=== PATIENT | male | born 1950 | race Caucasian/White ===

== ENCOUNTER 2020-05-30 05:31 | Day surgery (SDC) | payer MEDICARE ==
[2020-05-27 14:02] LABS: BASOPHILS % (AUTO) 0.5 % (0-1); EOSINOPHILS # (AUTO) 0.1 X10'3 (0-0.9); EOSINOPHILS % (AUTO) 2.4 % (0-6); LYMPHOCYTES # (AUTO) 1.7 X10'3 (1.1-4.8); LYMPHOCYTES % (AUTO) 32.9 % (21-51); MEAN CORPUSCULAR HEMOGLOBIN 29.3 PG (27.0-31.0); MEAN CORPUSCULAR HGB CONC 33.7 g/dL (33.0-36.5); MEAN PLATELET VOLUME 7.5 FL (7.4-10.4); MONOCYTES # (AUTO) 0.5 X10'3 (0-0.9); MONOCYTES % (AUTO) 9.8 % (2-12); NEUTROPHILS # (AUTO) 2.8 X10'3 (1.8-7.7); NEUTROPHILS % (AUTO) 54.4 % (42-75); PRE OP HEMATOCRIT 47.5 % (42.0-52.0); PRE OP PLATELET COUNT 186 X10'3 (140-440); RED BLOOD COUNT 5.46 X10'6 (4.70-6.10)
[2020-05-27 14:16] LABS: ALBUMIN 4.1 G/DL (3.4-5.0); ALBUMIN/GLOBULIN RATIO 1.2 (1.1-1.5); ALKALINE PHOSPHATASE 93 IU/L (46-116); BLOOD UREA NITROGEN 11 MG/DL (7-18); BUN/CREATININE RATIO 14.1 (5.4-32.0); CALCIUM 9.5 MG/DL (8.5-10.1); CHLORIDE 108 MMOL/L (99-107); CREATININE 0.78 MG/DL (0.60-1.10); PRE OP ANION GAP 8 (8-16); PRE OP AST 46 U/L (10-37); PRE OP BILIRUB, TOTAL 0.5 MG/DL (0.0-1.0); PRE OP GLUCOSE 99 MG/DL (70-104); PRE OP POTASSIUM 3.9 MMOL/L (3.4-5.1); PRE OP SODIUM 144 MMOL/L (135-145); TOTAL CARBON DIOXIDE 27.6 MMOL/L (24-32); TOTAL PROTEIN 7.5 G/DL (6.4-8.2); eGFR > 90 ML/MIN
[2020-05-27 14:19] LABS: PRE OP ALT 84 U/L (30-65)
[~2020-05-30] VITALS: Ht 177.8 cm; Wt 106.0 kg
[~2020-05-30 05:31] MED LIST: ASPI-611 PO; DUTA0.5C17 PO; MELO-102 PO; MONT10TA97 PO; TERA5CAP4 PO; famotidine 20mg tablet PO ONE; ringers solution, lacted 1,000 ML IV SCH
[2020-05-30 05:50] VITALS: BP 159/69
[2020-05-30] MEDS ORDERED: triamcinolone acetonide 40mg/ml inj ONE (06:48)
[2020-05-30] MEDS ORDERED: BUPIVAcaine/PF 2.5 mg/ml (0.25%) 30ml vial ONE ×2 (06:49→07:30)
[2020-05-30] MEDS ORDERED: sevoflurane 250ml liquid IH ONE (07:20)
[2020-05-30] MEDS ORDERED: fentaNYL/PF 50MCG/1 ML 2ML syringe ONE (07:22)
[2020-05-30] MEDS ORDERED: midazolam 2 mg/2 ml injection ONE (07:37)
[2020-05-30] MEDS ORDERED: propofol inj 20 ML IV ONE (07:37)
[2020-05-30] MEDS ORDERED: LIDOcaine 2% (20mg/ml) 5ml vial ONE (07:37)
[2020-05-30 07:38] VITALS: BP 128/77
--- NOTE | 2020-05-30 07:38 | NUR ---
Received from OR via gold, accompanied by Anesthesiologist Nichole and report given by Anesthesiolgist. Right knee with bandaid, no pain, pt alert and responsive, VS stable, Left hand IV LR at 100cc/hr.
[2020-05-30] MEDS ORDERED: meperidine/PF 25mg/ml syringe IV PRN ×3 (07:45)
[2020-05-30] MEDS ORDERED: ondansetron/PF 4mg/2ml inj IV PRN (07:45)
[2020-05-30] MEDS ORDERED: ringers solution, lacted 1,000 ML IV SCH (07:45)
[2020-05-30] MEDS ORDERED: proCHLORperazine 10 MG/2 ml inj IV PRN (07:45)
[2020-05-30] MEDS ORDERED: morphine 2 MG/ML inj. syringe IV PRN (07:45)
[2020-05-30] MEDS ORDERED: morphine 4 MG/ML inj SYRINge IV PRN (07:45)
[2020-05-30 07:50] VITALS: BP 131/85
[2020-05-30 08:00] VITALS: BP 136/92
[2020-05-30 08:10] VITALS: BP 132/86
--- NOTE | 2020-05-30 08:38 | NUR ---
Pt discharged to vehicle without incident, no pain, IV dc'd and all belongings returned to him. Pt and daughter verbalized understanding of DC instructions and pt states he has new pain meds already received at home. Daughter taking patient to scheduled PT appointment as discussed and planned by dcotrs office. PT office was called to confirm and they are expecting patient shortly.
== END 2020-05-30 08:38 | disposition home or self-care (01) ==
LOC: PAS 05:31
PROVIDERS: ATTEND Orthopaedic Surgery
DX: M25.661 Stiffness of right knee, not elsewhere classified (principal); J45.909 Unspecified asthma, uncomplicated; G89.4 Chronic pain syndrome; I10 Essential (primary) hypertension; N40.1 Benign prostatic hyperplasia with lower urinary tract symptoms; N13.8 Other obstructive and reflux uropathy; E78.5 Hyperlipidemia, unspecified; E66.8 Other obesity; Z68.34 Body mass index [BMI] 34.0-34.9, adult; M17.12 Unilateral primary osteoarthritis, left knee; Z96.651 Presence of right artificial knee joint; Z98.890 Other specified postprocedural states; Z79.899 Other long term (current) drug therapy; Z20.828 Contact with and (suspected) exposure to other viral communicable diseases; Z72.89 Other problems related to lifestyle; Z87.442 Personal history of urinary calculi; Z91.09 Other allergy status, other than to drugs and biological substances
CPT/HCPCS: 20610; 27570; 36415; 80053; 82948; 85025; 87635; J2001; J2250; J2704; J3010; J3301; J3490; A4215; A4618; J7120

== ENCOUNTER 2022-11-23 11:00 | Day surgery (SDC) | payer MEDICARE ==
[2022-11-20 10:13] LABS: BASOPHILS % (AUTO) 0.2 % (0-1); EOSINOPHILS # (AUTO) 0.2 X10'3 (0-0.9); EOSINOPHILS % (AUTO) 2.7 % (0-6); HEMATOCRIT 46.4 % (42.0-52.0); LYMPHOCYTES # (AUTO) 1.5 X10'3 (1.1-4.8); LYMPHOCYTES % (AUTO) 24.7 % (21-51); MEAN CORPUSCULAR HEMOGLOBIN 30.4 PG (27.0-31.0); MEAN CORPUSCULAR HGB CONC 34.6 g/dL (33.0-36.5); MEAN CORPUSCULAR VOLUME 87.9 FL (78-98); MEAN PLATELET VOLUME 7.4 FL (7.4-10.4); MONOCYTES # (AUTO) 0.6 X10'3 (0-0.9); MONOCYTES % (AUTO) 9.1 % (2-12); NEUTROPHILS # (AUTO) 3.8 X10'3 (1.8-7.7); NEUTROPHILS % (AUTO) 63.3 % (42-75); PLATELET COUNT 169 X10'3 (140-440); RED BLOOD COUNT 5.27 X10'6 (4.70-6.10); RED CELL DISTRIBUTION WIDTH 13.6 % (11.5-14.5); WHITE BLOOD COUNT 6.1 X10'3 (4.5-11.0)
[2022-11-20 10:17] LABS: APTT 31 SECONDS (22-32)
[2022-11-20 10:22] LABS: ALBUMIN 3.9 G/DL (3.4-5.0); ANION GAP 5 (8-16); BLOOD UREA NITROGEN 13 MG/DL (7-18); BUN/CREATININE RATIO 16.5 (10.0-20.0); CALCIUM 8.9 MG/DL (8.5-10.1); CHLORIDE 106 MMOL/L (99-107); CHOL/HDL RATIO 3.5 (0.00-4.99); CHOLESTEROL 173 MG/DL (0-200); CREATININE 0.79 MG/DL (0.60-1.10); GLUCOSE 113 MG/DL (70-104); HDL CHOLESTEROL 50 MG/DL (35-60); LDL CHOLESTEROL 109 MG/DL (50-100); POTASSIUM 3.9 MMOL/L (3.5-5.1); SODIUM 140 MMOL/L (135-145); TOTAL CARBON DIOXIDE 29.3 MMOL/L (24-32); TRIGLYCERIDES 64 MG/DL (20-135); eGFR > 90 ML/MIN
[~2022-11-23] VITALS: Ht 177.8 cm; Wt 112.1 kg
[2022-11-23] VITALS (7 sets, daily range): BP systolic 130–148; BP diastolic 76–101
[~2022-11-23 11:00] MED LIST changes: -DUTA0.5C17 PO; +DUTA0.5C36 PO; +MONT-40 PO; -MONT10TA97 PO; -famotidine 20mg tablet PO ONE; -ringers solution, lacted 1,000 ML IV SCH
[2022-11-23] MEDS ORDERED: normal saline 1,000 ML IV SCH (11:35)
[2022-11-23] MEDS ORDERED: diphenhydrAMINE 25mg capsule PO PRN (11:35)
[2022-11-23] MEDS ORDERED: LORazepam 0.5 MG tablet PO PRN (11:35)
[2022-11-23] MEDS ORDERED: CELE-28 PO (11:45)
[2022-11-23] MEDS ORDERED: PANT40TA54 PO (11:45)
[2022-11-23] MEDS ORDERED: CALC-212 PO (11:45)
[2022-11-23] MEDS ORDERED: MULT-620 PO (11:45)
[2022-11-23] MEDS ORDERED: ZINC100T2 PO (11:45)
[2022-11-23] MEDS ORDERED: verapamil 2.5 mg/ml inj IV ONE (14:15)
[2022-11-23] MEDS ORDERED: LIDOcaine 1% (10mg/ml) 2ml vial ONE ×2 (14:15→14:47)
[2022-11-23] MEDS ORDERED: nitroGLYCERIN-Tridil 50MG/D5W 250 ML IV ONE (14:15)
[2022-11-23] MEDS ORDERED: fentaNYL/PF 50MCG/1 ML 2ML syringe ONE (14:16)
[2022-11-23] MEDS ORDERED: iohexol 350MG/ML 100ml bottle IV ONE (14:16)
[2022-11-23] MEDS ORDERED: heparin 1,000unit/ml 10ml vial 10 ML ONE (14:16)
[2022-11-23] MEDS ORDERED: midazolam 1 mg/ML 2ml injection ONE (14:16)
[2022-11-23] MEDS ORDERED: iohexol 350 MG/ML 50ML vial IV ONE (15:35)
[2022-11-23 16:10] LABS: ISTAT HGB ART 12.9 g/dl (14.0-17.9); ISTAT Hct ART 38 %PCV (42-52); ISTAT O2 SATURATION ARTERIAL 94 % (95-98); ISTAT SOURCE ART
[2022-11-23] MEDS ORDERED: HYDROcodone/acetaminophen 10/325mg tab PO PRN (16:40)
[2022-11-23] MEDS ORDERED: HYDROcodone/acetaminophen 5mg/325mg tablet PO PRN (16:40)
== END 2022-11-23 17:45 | disposition home or self-care (01) ==
LOC: SSTAY O 11:00
PROVIDERS: ATTEND Internal Medicine Interventional Cardiology
DX: I35.0 Nonrheumatic aortic (valve) stenosis (principal); I25.10 Atherosclerotic heart disease of native coronary artery without angina pectoris; N40.0 Benign prostatic hyperplasia without lower urinary tract symptoms; M06.9 Rheumatoid arthritis, unspecified; I10 Essential (primary) hypertension; E78.5 Hyperlipidemia, unspecified; E66.9 Obesity, unspecified; Z68.34 Body mass index [BMI] 34.0-34.9, adult; J45.909 Unspecified asthma, uncomplicated; G89.4 Chronic pain syndrome; Z79.899 Other long term (current) drug therapy; Z79.01 Long term (current) use of anticoagulants
CPT/HCPCS: 36415; 80048; 80061; 82803; 85014; 85025; 85610; 85730; 93005; 93456; 99152; 99153; A6258; J1644; J2250; J3010; J3490; J7030; Q0163; Q9967; A6402; C1751; C1894

== ENCOUNTER 2022-12-16 10:22 | Outpatient (CLI) | payer MEDICARE ==
[~2022-12-16] VITALS: Ht 177.8 cm; Wt 111.1 kg
[~2022-12-16 10:22] MED LIST changes: -ASPI-611 PO; +CALC-212 PO; +CELE-28 PO; +MULT-620 PO; +PANT40TA54 PO; +ZINC100T2 PO
[2022-12-16 10:49] LABS: BASOPHILS % (AUTO) 0.4 % (0-1); EOSINOPHILS # (AUTO) 0.2 X10'3 (0-0.9); EOSINOPHILS % (AUTO) 2.9 % (0-6); HEMATOCRIT 47.2 % (42.0-52.0); HEMOGLOBIN 16.1 g/dl (14.0-17.9); LYMPHOCYTES # (AUTO) 2.1 X10'3 (1.1-4.8); LYMPHOCYTES % (AUTO) 38.3 % (21-51); MEAN CORPUSCULAR HEMOGLOBIN 29.9 PG (27.0-31.0); MEAN CORPUSCULAR HGB CONC 34.1 g/dL (33.0-36.5); MEAN CORPUSCULAR VOLUME 87.8 FL (78-98); MONOCYTES # (AUTO) 0.6 X10'3 (0-0.9); MONOCYTES % (AUTO) 10.6 % (2-12); NEUTROPHILS # (AUTO) 2.7 X10'3 (1.8-7.7); NEUTROPHILS % (AUTO) 47.8 % (42-75); PLATELET COUNT 168 X10'3 (140-440); RED BLOOD COUNT 5.37 X10'6 (4.70-6.10); RED CELL DISTRIBUTION WIDTH 13.7 % (11.5-14.5); WHITE BLOOD COUNT 5.6 X10'3 (4.5-11.0)
[2022-12-16] MEDS ORDERED: IODIXANOL 320 MG/ML INFUS..BTL 100ML IV ONE ×2 (11:02→12:24)
[2022-12-16 11:04] LABS: APTT 31 SECONDS (22-32)
[2022-12-16 11:46] LABS: ALANINE AMINOTRANSFERASE 93 U/L (12-78); ALBUMIN 3.9 G/DL (3.4-5.0); ALBUMIN/GLOBULIN RATIO 1.1 (1.1-1.5); ALKALINE PHOSPHATASE 129 IU/L (46-116); ANION GAP 7 (8-16); ASPARTATE AMINO TRANSFERASE 48 U/L (10-37); BILIRUBIN,TOTAL 0.4 MG/DL (0.1-1.0); BLOOD UREA NITROGEN 21 MG/DL (7-18); BUN/CREATININE RATIO 23.6 (10.0-20.0); CALCIUM 9.5 MG/DL (8.5-10.1); CHLORIDE 106 MMOL/L (99-107); CREATININE 0.89 MG/DL (0.60-1.10); GLUCOSE 117 MG/DL (70-104); POTASSIUM 3.9 MMOL/L (3.5-5.1); SODIUM 140 MMOL/L (135-145); TOTAL CARBON DIOXIDE 26.8 MMOL/L (24-32); TOTAL PROTEIN 7.4 G/DL (6.4-8.2); eGFR 84 ML/MIN
[2022-12-16] MEDS ORDERED: albuterol 2.5 MG/3 ML nebule NEB PRN (13:20)
== END 2022-12-16 23:59 | disposition home or self-care (01) ==
LOC: RAD 10:22
PROVIDERS: ATTEND Internal Medicine Cardiovascular Disease
DX: I35.0 Nonrheumatic aortic (valve) stenosis (principal); R06.02 Shortness of breath; I65.29 Occlusion and stenosis of unspecified carotid artery; R94.2 Abnormal results of pulmonary function studies; K40.20 Bilateral inguinal hernia, without obstruction or gangrene, not specified as recurrent; K42.9 Umbilical hernia without obstruction or gangrene; K57.30 Diverticulosis of large intestine without perforation or abscess without bleeding; K59.00 Constipation, unspecified; K44.9 Diaphragmatic hernia without obstruction or gangrene; I70.0 Atherosclerosis of aorta; N62 Hypertrophy of breast; R60.0 Localized edema
CPT/HCPCS: 36415; 71046; 71275; 74174; 80053; 83880; 85025; 85610; 85730; 94060; 94727; 94729; 94760; J3490; Q9967

== ENCOUNTER 2023-01-28 05:25 | Inpatient (IN) | payer MEDICARE ==
[2023-01-21 16:04] LABS: BILIRUBIN,URINE NEGATIVE (Neg); CLARITY,URINE SLIGHTLY CLOUDY (Clear); COLOR,URINE YELLOW (Yellow); GLUCOSE, URINE NEGATIVE (Neg); KETONES,URINE NEGATIVE (Neg); LEUKOCYTE ESTERASE ,URINE NEGATIVE (Neg); NITRITES, URINE NEGATIVE (Neg); OCCULT BLOOD,URINE NEGATIVE (Neg); PH,URINE 5.5 (4.8-8.0); PROTEIN,URINE NEGATIVE (Neg); UROBILINOGEN,URINE 0.2 E.U/dL (0.2-1.0)
[2023-01-21 16:11] LABS: BASOPHILS % (AUTO) 0.3 % (0-1); EOSINOPHILS # (AUTO) 0.1 X10'3 (0-0.9); EOSINOPHILS % (AUTO) 2.4 % (0-6); LYMPHOCYTES # (AUTO) 1.8 X10'3 (1.1-4.8); LYMPHOCYTES % (AUTO) 32.5 % (21-51); MEAN CORPUSCULAR HEMOGLOBIN 30.2 PG (27.0-31.0); MEAN CORPUSCULAR HGB CONC 34.1 g/dL (33.0-36.5); MEAN CORPUSCULAR VOLUME 88.4 FL (78-98); MEAN PLATELET VOLUME 7.3 FL (7.4-10.4); MONOCYTES # (AUTO) 0.5 X10'3 (0-0.9); MONOCYTES % (AUTO) 9.2 % (2-12); NEUTROPHILS # (AUTO) 3.1 X10'3 (1.8-7.7); NEUTROPHILS % (AUTO) 55.6 % (42-75); PRE OP HEMATOCRIT 46.3 % (42.0-52.0); PRE OP HEMOGLOBIN 15.8 g/dL (14.0-17.9); PRE OP PLATELET COUNT 171 X10'3 (140-440); PRE OP WHITE BLOOD COUNT 5.6 10'3 (4.8-10.8); RED BLOOD COUNT 5.24 X10'6 (4.70-6.10); RED CELL DISTRIBUTION WIDTH 13.2 % (11.5-14.5)
[2023-01-21 16:19] LABS: PRE OP PROTIME 10.5 SECONDS (9.0-12.0)
[2023-01-21 16:20] LABS: UA COLLECTION TYPE CLN CATCH MIDSTREAM
[2023-01-21 16:21] LABS: MUCUS STRANDS MANY /LPF (Neg); SQUAMOUS EPITHELIAL CELL,UR FEW /LPF (FEW)
[2023-01-21 16:22] LABS: BACTERIA,URINE 1+ /HPF (Neg); RBC,URINE 0-2 /HPF (0-2); WBC,URINE 0-4 /HPF (0-4)
[2023-01-21 16:27] LABS: ALBUMIN 3.9 G/DL (3.4-5.0); ALBUMIN/GLOBULIN RATIO 1.2 (1.1-1.5); ALKALINE PHOSPHATASE 121 IU/L (46-116); BLOOD UREA NITROGEN 15 MG/DL (7-18); BUN/CREATININE RATIO 18.5 (10.0-20.0); CALCIUM 9.1 MG/DL (8.5-10.1); CHLORIDE 104 MMOL/L (99-107); CREATININE 0.81 MG/DL (0.60-1.10); PRE OP ANION GAP 8 (8-16); PRE OP AST 56 U/L (10-37); PRE OP BILIRUB, TOTAL 0.4 MG/DL (0.0-1.0); PRE OP GLUCOSE 96 MG/DL (70-104); PRE OP POTASSIUM 3.7 MMOL/L (3.4-5.1); PRE OP SODIUM 139 MMOL/L (135-145); PRO BRAIN NATRIURETIC PEPTIDE 31 PG/ML (0-125); TOTAL CARBON DIOXIDE 27.2 MMOL/L (24-32); TOTAL PROTEIN 7.2 G/DL (6.4-8.2); eGFR > 90 ML/MIN
[2023-01-21 16:38] LABS: PRE OP ALT 96 U/L (30-65)
[~2023-01-28] VITALS: Ht 175.3 cm; Wt 111.8 kg
[2023-01-28] VITALS (34 sets, daily range): BP systolic 113–190; BP diastolic 47–101; PULSE 54–77; RESP 12–18; TEMP 96.3–97.9; O2SAT 90–98
[~2023-01-28 05:25] MED LIST changes: -CELE-28 PO; +DULO20CA18 PO; +ringers solution, lacted 1,000 ML IV SCH
[2023-01-28] MEDS ORDERED: ondansetron/PF 4mg/2ml inj IV PRN ×3 (05:30→08:35)
[2023-01-28] MEDS ORDERED: cefazolin 2gm/D5W 100mL 100 ML IV ONE (05:30)
[2023-01-28] MEDS ORDERED: nitroPRUSSIDE (NIPRIDE) (200MCG/ML) 100ML Drip IV SCH (05:30)
[2023-01-28] MEDS ORDERED: famotidine 20mg tablet PO ONE (05:30)
[2023-01-28] MEDS ORDERED: aspirin 325mg tablet PO ONE (05:30)
[2023-01-28] MEDS ORDERED: vancomycin 1,500 MG in NS 300ml IV soln IV ONE (05:30)
[2023-01-28] MEDS: phenylephrine inj 50 MG in normal saline 250ml IV solN IV SCH ×2 (05:30→20:49)
[2023-01-28] MEDS ORDERED: LIDOcaine 1% 30ml preserv. free vial ONE (06:33)
[2023-01-28] MEDS ORDERED: iohexol 350MG/ML 100ml bottle IV ONE (06:33)
[2023-01-28] MEDS ORDERED: protamine sulfate 10mg/ml inj. ONE (06:37)
[2023-01-28] MEDS ORDERED: heparin 1,000 UNITS/NS 500ml 500 ML ONE (06:41)
[2023-01-28] MEDS ORDERED: LIDOcaine 1% (10mg/ml) 2ml vial ONE (06:59)
[2023-01-28] MEDS ORDERED: fentaNYL/PF 50MCG/1 ML 2ML syringe ONE (07:01)
[2023-01-28] MEDS ORDERED: ondansetron/PF 4mg/2ml inj ONE (07:01)
[2023-01-28] MEDS ORDERED: sevoflurane 250ml liquid IH ONE (07:01)
[2023-01-28] MEDS ORDERED: heparin 1,000unit/ml 10ml vial 10 ML ONE (07:02)
[2023-01-28] MEDS ORDERED: propofol inj 20 ML IV ONE (07:02)
[2023-01-28] MEDS ORDERED: midazolam 1 mg/ML 2ml injection ONE (07:02)
[2023-01-28] MEDS ORDERED: rocuronium 10mg/ml inj IV ONE (07:58)
[2023-01-28] MEDS ORDERED: morphine 2 MG/ML inj. syringe IV PRN (08:00)
[2023-01-28] MEDS ORDERED: ringers solution, lacted 1,000 ML IV SCH (08:00)
[2023-01-28] MEDS ORDERED: meperidine/PF 25mg/ml syringe IV PRN ×3 (08:00)
[2023-01-28] MEDS ORDERED: morphine 4 MG/ML inj SYRINge IV PRN (08:00)
[2023-01-28] MEDS ORDERED: proCHLORperazine 10 MG/2 ml inj IV PRN ×2 (08:00→08:35)
[2023-01-28] MEDS ORDERED: sugammadex 200mg/2ml injection IV ONE (08:20)
[2023-01-28] MEDS ORDERED: acetaminophen 325mg tablet PO PRN (08:35)
[2023-01-28] MEDS ORDERED: potassium CL 10mEq/100ml bag 100 ML IV PRN (08:35)
[2023-01-28] MEDS ORDERED: labetalol 20mg/4ml (5mg/ml) syringe IV PRN (08:35)
[2023-01-28] MEDS ORDERED: magnesium 4gm in 100ml NS 100 ML IV PRN (08:35)
[2023-01-28] MEDS ORDERED: potassium Cl 40MEQ/270ML bag 270 ML IV PRN (08:35)
[2023-01-28] MEDS ORDERED: potassium Cl 20mEq/100mL bag 100 ML IV PRN (08:35)
[2023-01-28] MEDS ORDERED: hydrALAZINE 20mg/ml inj. IV PRN (08:35)
[2023-01-28] MEDS ORDERED: magnesium 2GM in 50ml NS 50 ML IV PRN (08:35)
[2023-01-28] MEDS ORDERED: ALPRAZolam 0.25mg tablet PO PRN (08:35)
[2023-01-28] MEDS ORDERED: docusate sod 100mg capsule PO PRN (08:35)
[2023-01-28] MEDS ORDERED: diphenhydrAMINE 25mg capsule PO PRN (08:35)
[2023-01-28] MEDS ORDERED: potassium Cl 40MEQ/1/2NS 520ml 520 ML IV PRN (08:35)
[2023-01-28] MEDS ORDERED: pantoprazole 40mg Tablet.DR PO PRN (08:35)
[2023-01-28] MEDS ORDERED: potassium Cl 20 mEq SR tablet PO PRN (08:35)
--- NOTE | 2023-01-28 08:45 | NUR ---
Received from OR via gurney, accompanied by Anesthesiologist and report given by Anesthesiologist. PATIENT WAKING UP, NO S/S OF PAIN, V/S WNL, 20G TO RUE, ART LINE LUE. PEDAL PULSES PALPABLE BILATERALLY, GROIN SIGHTS WITH DRESSING CDI W/ NO S/S OF COMPLICATIONS AND NO DRAINAGE OR HEMATOMA OBSERVABLE AND SITE IS SOFT WHEN PALPATED . SINUS
--- NOTE | 2023-01-28 10:20 | NUR ---
PATIENT A&OX4, DENIES PAIN, V/S WNL, 20G TO RUE, ART LINE LUE. PEDAL PULSES PALPABLE BILATERALLY, GROIN SIGHTS WITH DRESSING CDI W/ NO S/S OF COMPLICATIONS AND NO DRAINAGE OR HEMATOMA OBSERVABLE AND SITE IS SOFT WHEN PALPATED . SINUS , NEUROCHECKS STABLE NO CHANGES.
--- NOTE | 2023-01-28 11:35 | NUR ---
PATIENT A&OX4, DENIES PAIN, V/S WNL, 20G TO VILMA GIL D/Jovi. PEDAL PULSES PALPABLE BILATERALLY, GROIN SIGHTS WITH DRESSING CDI W/ NO S/S OF COMPLICATIONS AND NO DRAINAGE OR HEMATOMA OBSERVABLE AND SITE IS SOFT WHEN PALPATED . SINUS , NEUROCHECKS STABLE NO CHANGES. PATIENT TAKEN TO ROOM WITH ALL BELONGINGS AND HOOKED UP TO MONITORS IN ROOM AND GIVEN CALL LIGHT, REPORT GIVEN TO RN WHO HAS TAKEN OVER PATIENT CARE.
[2023-01-28] MEDS: normal saline 1000ml 1,000 ML IV SCH ×2 (14:35→18:35)
--- NOTE | 2023-01-28 15:19 | NUR ---
Received from PACU, VSS. Bilat groin sites no hematoma.
--- NOTE | 2023-01-28 15:26 | NUR ---
Report to Rossy RAMOS, pt transferred via bed with all belongings to [id number]
--- NOTE | 2023-01-28 15:45 | NUR ---
Patient in room PCU 3025. I have received report from Gretchen RAMOS and had the opportunity to ask questions and assume patient care. Pt family at bedside. Pt right groin site with dime size drainage.no hematoma. call light in reach. Addendum: 01/28/23 at 1608 by Mely Bay RN Amended: Links added.
[2023-01-28] MEDS: sod chloride 0.9% 10ml flush syringe IV SCH (16:00)
[2023-01-28] MEDS: ceFAZolin 1GM/D5W- ADD-VANTAGE 50 ML IV SCH (17:26)
--- NOTE | 2023-01-28 18:35 | NUR ---
Problems reprioritized. Patient report given, questions answered & plan of care reviewed with Marco A RAMOS. Pt eating dinner, No distress, Groin sites unchanged. Call light in reach. Addendum: 01/28/23 at 1836 by Mely Bay RN Amended: Links added.
[2023-01-28] MEDS: MELOXICAM 15MG PO SCH (20:00)
[2023-01-28] MEDS: HYDROcodone/acetaminophen 5mg/325mg tablet PO PRN (20:58)
[2023-01-28] MEDS ORDERED: terazosin 5mg capsule PO SCH (21:00)
[2023-01-28] MEDS: vancomycin/NS 1 GM ADD-VANTAGE 250 ML IV SCH (21:00)
[2023-01-28] MEDS ORDERED: montelukast 10mg tablet PO SCH (21:00)
[2023-01-29] MEDS: ceFAZolin 1GM/D5W- ADD-VANTAGE 50 ML IV SCH ×2 (00:49→08:34)
[2023-01-29] MEDS: sod chloride 0.9% 10ml flush syringe IV SCH ×2 (00:55→08:38)
[2023-01-29 02:00] VITALS: BP 158/94; PULSE 95; RESP 18; TEMP 98.1; O2SAT 92
[2023-01-29 03:00] VITALS: BP 118/69; PULSE 83; RESP 17; O2SAT 91
[2023-01-29] MEDS: normal saline 1000ml 1,000 ML IV SCH (04:35)
[2023-01-29 06:00] VITALS: BP 116/68; PULSE 80; RESP 16; TEMP 97.8; O2SAT 91
--- NOTE | 2023-01-29 06:32 | NUR ---
Patient in room PCU 3025. I have received report from Marco A RAMOS and had the opportunity to ask questions and assume patient care.Pt awake and alert. Groin sites unchanged. Xray taken. Call light in reach. Addendum: 01/29/23 at 0633 by Mely Bay RN Amended: Links added.
[2023-01-29 06:35] LABS: BASOPHILS % (AUTO) 0.1 % (0-1); EOSINOPHILS # (AUTO) 0.1 X10'3 (0-0.9); HEMATOCRIT 40.9 % (42.0-52.0); LYMPHOCYTES # (AUTO) 1.7 X10'3 (1.1-4.8); LYMPHOCYTES % (AUTO) 20.3 % (21-51); MEAN CORPUSCULAR HEMOGLOBIN 30.7 PG (27.0-31.0); MEAN CORPUSCULAR HGB CONC 34.3 g/dL (33.0-36.5); MEAN CORPUSCULAR VOLUME 89.3 FL (78-98); MEAN PLATELET VOLUME 7.6 FL (7.4-10.4); NEUTROPHILS # (AUTO) 5.5 X10'3 (1.8-7.7); NEUTROPHILS % (AUTO) 66.6 % (42-75); PLATELET COUNT 124 X10'3 (140-440); RED BLOOD COUNT 4.58 X10'6 (4.70-6.10); RED CELL DISTRIBUTION WIDTH 13.6 % (11.5-14.5); WHITE BLOOD COUNT 8.3 X10'3 (4.5-11.0)
[2023-01-29 07:06] VITALS: O2SAT 93
[2023-01-29 07:07] LABS: ALANINE AMINOTRANSFERASE 68 U/L (12-78); ALBUMIN 3.2 G/DL (3.4-5.0); ALBUMIN/GLOBULIN RATIO 1.1 (1.1-1.5); ALKALINE PHOSPHATASE 95 IU/L (46-116); ANION GAP 7 (8-16); ASPARTATE AMINO TRANSFERASE 44 U/L (10-37); BILIRUBIN,TOTAL 0.6 MG/DL (0.1-1.0); BLOOD UREA NITROGEN 14 MG/DL (7-18); BUN/CREATININE RATIO 17.9 (10.0-20.0); CALCIUM 8.3 MG/DL (8.5-10.1); CHLORIDE 106 MMOL/L (99-107); CREATININE 0.78 MG/DL (0.60-1.10); GLUCOSE 110 MG/DL (70-104); MAGNESIUM 1.9 MG/DL (1.5-2.4); POTASSIUM 3.8 MMOL/L (3.5-5.1); PRO BRAIN NATRIURETIC PEPTIDE 105 PG/ML (0-125); SODIUM 142 MMOL/L (135-145); TOTAL CARBON DIOXIDE 29.5 MMOL/L (24-32); TOTAL PROTEIN 6.1 G/DL (6.4-8.2); eCRCL 87 ML/MIN; eGFR > 90 ML/MIN
[2023-01-29] MEDS ORDERED: ZINC GLUCONATE PO SCH (08:00)
[2023-01-29] MEDS: MELOXICAM 15MG PO SCH (08:00)
[2023-01-29] MEDS ORDERED: multivitamins, therapeutics tablet PO SCH (08:00)
[2023-01-29] MEDS ORDERED: pantoprazole 40mg Tablet.DR PO SCH (08:00)
[2023-01-29] MEDS ORDERED: duloxetine 20mg capsule.DR PO SCH (08:00)
[2023-01-29] MEDS ORDERED: dutasteride 0.5 MG capsule PO SCH (08:00)
[2023-01-29 08:15] VITALS: RESP 16; O2SAT 91
[2023-01-29] MEDS: HYDROcodone/acetaminophen 5mg/325mg tablet PO PRN (08:29)
[2023-01-29] MEDS ORDERED: aspirin 81mg tab.chew PO SCH (08:30)
[2023-01-29] MEDS: vancomycin/NS 1 GM ADD-VANTAGE 250 ML IV SCH (08:34)
[2023-01-29 09:29] VITALS: RESP 16
--- NOTE | 2023-01-29 10:46 | NUR ---
attempted to get pt OOB. Pt C/O tearing pain at R groin site. Aborted mission and informed Agnieszka COOPER of findings. She will examine.
[2023-01-29] MEDS ORDERED: ASPI-1265 PO (12:16)
--- NOTE | 2023-01-29 14:06 | NUR ---
All written and verbal orders for D/C given, All questions answered. groin site care, medications and follow up appointments explained. Pt home with . Addendum: 01/29/23 at 1408 by Mely Bay RN Amended: Links added.
== END 2023-01-29 13:53 | disposition home or self-care (01) | DRG 267 ==
LOC: PAS IN 05:25 → PCU 3S 16:01
PROVIDERS: ADMIT Internal Medicine Cardiovascular Disease; ATTEND Internal Medicine Cardiovascular Disease
PROC: 027F3ZZ Dilation of Aortic Valve, Percutaneous Approach (ICD-10-PCS; 2023-01-28)
PROC: B41D1ZZ Fluoroscopy of Aorta and Bilateral Lower Extremity Arteries using Low Osmolar Contrast (ICD-10-PCS; 2023-01-28)
PROC: 02RF38Z Replacement of Aortic Valve with Zooplastic Tissue, Percutaneous Approach (ICD-10-PCS; principal; 2023-01-28 07:01)
DX: I35.0 Nonrheumatic aortic (valve) stenosis (principal); Z00.6 Encounter for examination for normal comparison and control in clinical research program; E78.5 Hyperlipidemia, unspecified; G89.4 Chronic pain syndrome; I10 Essential (primary) hypertension; J45.909 Unspecified asthma, uncomplicated; M06.9 Rheumatoid arthritis, unspecified; Z79.899 Other long term (current) drug therapy; Z79.82 Long term (current) use of aspirin
CPT/HCPCS: 33361; 36415; 71045; 71046; 76937; 80053; 81001; 82948; 83735; 83880; 85025; 85347; 85610; 85730; 86885; 86900; 86901; 86920; 87081; 93005; 93308; A4615; A4618; A6258; A6449; C1725; C1756; C1760; C1769; C1894; G0378; J0690; J1644; J2175; J2250; J2370; J2405; J2704; J2720; J3010; J3370; J3490; J7030; J7040; J7050; J7120; Q9967

== ENCOUNTER 2024-01-15 05:07 | Emergency (ER) | payer MEDICARE ==
[~2024-01-15] VITALS: Ht 175.3 cm; Wt 118.2 kg
[~2024-01-15 05:07] MED LIST changes: -ringers solution, lacted 1,000 ML IV SCH
[2024-01-15 05:11] VITALS: TEMP 98.3
[2024-01-15 06:13] LABS: ALANINE AMINOTRANSFERASE 86 U/L (12-78); ALBUMIN 3.8 G/DL (3.4-5.0); ALKALINE PHOSPHATASE 121 IU/L (46-116); ANION GAP 8 (8-16); ASPARTATE AMINO TRANSFERASE 67 U/L (10-37); BILIRUBIN,TOTAL 0.6 MG/DL (0.1-1.0); BLOOD UREA NITROGEN 15 MG/DL (7-18); BUN/CREATININE RATIO 17.4 (10.0-20.0); CALCIUM 9.4 MG/DL (8.5-10.1); CHLORIDE 106 MMOL/L (99-107); CREATININE 0.86 MG/DL (0.60-1.10); GLUCOSE 115 MG/DL (70-104); POTASSIUM 3.8 MMOL/L (3.5-5.1); PRO BRAIN NATRIURETIC PEPTIDE 41 PG/ML (0-125); SODIUM 142 MMOL/L (135-145); TOTAL CARBON DIOXIDE 27.9 MMOL/L (24-32); TOTAL PROTEIN 7.6 G/DL (6.4-8.2); eCRCL 78 ML/MIN; eGFR 87 ML/MIN
[2024-01-15 06:25] LABS: BASOPHILS % (AUTO) 0.5 % (0-1); EOSINOPHILS # (AUTO) 0.2 X10'3 (0-0.9); EOSINOPHILS % (AUTO) 3.9 % (0-6); HEMATOCRIT 41.2 % (42.0-52.0); HEMOGLOBIN 13.6 g/dl (14.0-17.9); LYMPHOCYTES # (AUTO) 1.3 X10'3 (1.1-4.8); MEAN CORPUSCULAR HEMOGLOBIN 27.2 PG (27.0-31.0); MEAN CORPUSCULAR HGB CONC 33.1 g/dL (33.0-36.5); MEAN CORPUSCULAR VOLUME 82.1 FL (78-98); MEAN PLATELET VOLUME 8.3 FL (7.4-10.4); MONOCYTES # (AUTO) 0.5 X10'3 (0-0.9); MONOCYTES % (AUTO) 9.5 % (2-12); NEUTROPHILS # (AUTO) 3.2 X10'3 (1.8-7.7); NEUTROPHILS % (AUTO) 61.1 % (42-75); PLATELET COUNT 159 X10'3 (140-440); RED BLOOD COUNT 5.02 X10'6 (4.70-6.10); RED CELL DISTRIBUTION WIDTH 15.9 % (11.5-14.5); WHITE BLOOD COUNT 5.3 X10'3 (4.5-11.0)
[2024-01-15] MEDS: LIDOcaine 5% patch TP SCH (06:59)
[2024-01-15] MEDS ORDERED: LIDO700A32 TD (07:25)
[2024-01-15 07:58] VITALS: BP 145/81; PULSE 64; RESP 16; O2SAT 95
[2024-01-15] MEDS ORDERED: LIDOcaine 5% patch TP SCH (08:00)
== END 2024-01-15 07:45 | disposition home or self-care (01) ==
LOC: ER 05:07
DX: R07.89 Other chest pain (principal); Z91.048 Other nonmedicinal substance allergy status; Z79.899 Other long term (current) drug therapy
CPT/HCPCS: 36415; 71046; 80053; 83880; 84484; 85025; 93005; 99285